=== PATIENT | male | born 1960 | race Caucasian/White ===

== ENCOUNTER → 2023-08-14 | Outpatient (CLI) | payer BC ==
--- NOTE | 2023-08-14 17:09 | Diagnostic Imaging Report ---
INDICATION: Cough and wheeze. FINDINGS: The lungs are clear. There is no failure, effusion, or pneumothorax. IMPRESSION: Normal two-view chest. Dictated by: Dictated on workstation # [id number]
== END ==
LOC: RAD 16:34
PROVIDERS: ATTEND Internal Medicine
DX: R05.8 Other specified cough (principal)
CPT/HCPCS: 71046